=== PATIENT | male | born 1990 | race Native Hawaiian/Other Pacific Islander ===

== ENCOUNTER 2020-04-10 17:07 | Inpatient (IN) | payer OTHER ==
[~2020-04-10] VITALS: Ht 165.1 cm; Wt 69.8 kg
[2020-04-10 17:14] VITALS: BP 109/60
[2020-04-10 17:44] LABS: URINE BILIRUBIN NEGATIVE (Negative); URINE BLOOD NEGATIVE (Negative); URINE CLARITY CLEAR; URINE COLOR YELLOW; URINE GLUCOSE-RANDOM* NEGATIVE (Negative); URINE KETONES NEGATIVE (Negative); URINE LEUKOCYTES-REFLEX NEGATIVE (Negative); URINE NITRITE-REFLEX NEGATIVE (Negative); URINE PROTEIN (DIPSTICK) 1+ (Negative); URINE SPECIFIC GRAVITY 1.025 (1.005-1.035)
[2020-04-10 17:47] LABS: ABSOLUTE NEUTROPHILS 5.4 thou/uL (1.4-8.2); BASOPHILS 0.9 % (0.0-2.0); EOSINOPHILS 0.5 % (0.0-3.0); HEMATOCRIT 30.1 % (42.0-52.0); HEMOGLOBIN 10.1 gm/dL (14.0-18.0); LYMPHOCYTES 10.2 % (24.0-44.0); MCH 27.4 pg (26.0-34.0); MCHC 33.6 g/dL (28.0-37.0); MCV 81.5 fL (80.0-100.0); MONOCYTES 6.7 % (1.0-8.0); PLATELET COUNT 103 thou/uL (150-400); POLYS 81.7 % (36.0-66.0); RDW 14.8 % (10.5-14.5); WBC 6.7 thou/uL (4.0-11.0)
[2020-04-10 17:51] LABS: MUCUS >6 Heavy strn/LPF (None Seen); SQUAMOUS 0-3 Few /LPF (0-3)
[2020-04-10 17:52] LABS: BACTERIA-REFLEX None Seen /HPF (None Seen); CASTS None Seen /LPF (None Seen); CRYSTALS None Seen /LPF (None Seen); URINE RBC 0-2 Rare /HPF (0-2); URINE WBC-REFLEX 0-5 Rare /HPF (0-5)
[2020-04-10 17:56] LABS: CALCIUM 8.6 mg/dL (8.5-10.1); CREATININE 0.9 mg/dL (0.7-1.3); POTASSIUM 3.7 mmol/L (3.5-5.1)
[2020-04-10 18:02] LABS: ALBUMIN 2.9 g/dL (3.4-5.0); TOTAL BILIRUBIN 0.6 mg/dL (0.2-1.0); TOTAL PROTEIN 7.5 g/dL (6.4-8.2)
[2020-04-10 23:34] LABS: % SATURATION 6 % (20-39); IRON 16 ug/dL (65-175); TIBC 276 ug/dL (250-450)
[2020-04-11] VITALS (9 sets, daily range): BP systolic 95–105; BP diastolic 45–75
[2020-04-11 06:10] LABS: HEMATOCRIT 28.2 % (42.0-52.0); HEMOGLOBIN 9.3 gm/dL (14.0-18.0); MCH 27.3 pg (26.0-34.0); MCHC 32.9 g/dL (28.0-37.0); MCV 82.8 fL (80.0-100.0); RBC 3.4 mil/uL (4.50-6.00); RDW 14.4 % (10.5-14.5); WBC 3.8 thou/uL (4.0-11.0)
[2020-04-11 06:34] LABS: CALCIUM 8.3 mg/dL (8.5-10.1); CREATININE 0.9 mg/dL (0.7-1.3); MAGNESIUM 2.3 mg/dL (1.8-2.4); POTASSIUM 3.6 mmol/L (3.5-5.1)
--- NOTE | 2020-04-11 07:30 | NUR ---
ER REPORT RECEIVED AT 0606. PT CAME UP TO THE UNIT AT AROUND 0620. PT ORIENTED TO ROOM AND TO STAFF.PT GIVEN CALL LIGHT. HE IS NEPALESE SPEAKING. UNDERSTANDS A LITTLE BIT OF CYPRIOT. RATES PAIN AT ZERO.ADMISSION NOT DONE. REPORT GIVEN TO DAY RN.
--- NOTE | 2020-04-11 09:14 | NUR ---
ASSUMED CARE OF PATIENT HE IS ALERT X 3-4 STATES UNDERSTANDS SOME YAKUT FLUIDS STARTED ORDERED GAVE AM MED. DR COTE HERE TO SEE PATIENT. CHEST CT ORDERED WILL HOLD LUNCH.
[2020-04-11 10:15] LABS: APTT 32.1 Seconds (24.5-32.8); INR 1.2
[2020-04-11 11:11] LABS: FOLIC ACID 17.3 ng/mL (8.6-58.9)
--- NOTE | 2020-04-11 11:48 | NUR ---
Case opened to follow for dc planning. Brick Handler visited with the pt at bedside. Pt's primary language is Malay. Does understand some Spanish. His brother Jalen was here this am and left to go to work. The pt indicates that he lives with his and two children ages 4/6 in an apt. 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 He is from [place]. He notes his brother and to be his primary emergency contacts. He has met with the oncologist this am and had CT angio this morning. Bone Marrow bx anticipated today. Pt is anxious at the prospect of having cancer. He states no one in his family has cancer. Support provided. [facility] liason here to visit with the pt as well. He [place] likely [place] qualify [place]. [place] application requested. Followup care discussed and [facility] recommended. Pt provided the number for [facility] financial services to apply for their discount and to estb any f/u care needed. Cm to voucher any scripts at dc and revisit with the pt regarding f/u care needs pending the outcome of his workup. Will follow.
--- NOTE | 2020-04-11 16:09 | NUR ---
DR NUGENT PROCESS DEVELOPMENT CHEMIST HERE TO SEE PATIENT FOR GI CONSULT , DR SMITH ONCOLOGY HERE TO CONSULT WITH PATIENT,
[2020-04-11 19:06] LABS: HEMOGLOBIN 10.3 g/dL (13.0-17.7)
--- NOTE | 2020-04-11 19:31 | NUR ---
SPOKE WITH IR DR JOHNSON WILL DO BONE MARROW BIOPSY. 04/12/20 PT NPO AT MIDNIGHT WILL ALSO HAVE EGD DEVORA. SEE DR SMITH'S ORDER.
[2020-04-12 03:10] VITALS: BP 93/54
--- NOTE | 2020-04-12 03:10 | NUR ---
ASSUMED PT CARE AT AROUND 1915 HRS.PT LAYING IN BED. DOES MOT SEEM TO BE IN DISTRESS. UNDERSTANDS SOME CROATIAN AND KNOWS HE HAS SOME PROCEDURES TOMORROW. DENIES PAIN.NPO AFTER MIDNOC. UP AD QUIN IN ROOM.AFEBRILE. VOIDING OKAY. DENIES ANY NAUSEA OR VOMITING. BOWEL SOUNDS +VE X4. CALLS WITH NEEDS.
--- NOTE | 2020-04-12 07:28 | HC ---
[facility] [place] [address] [place] [address] CONSULTATION Name: EDWIGE CEEMINGOBAUTISTA Room #: 434-P ADM IN M.R.#: [id number] Admission: 04/10/20 Attend Phys: Rei Burns MD Discharge: Date of : 89 Report #: [id number] THIS REPORT FOR: cc: FAM - No family physician/PCP FAM - No family physician/PCP Derek Radford MD ~ PHYSICIAN REQUESTING CONSULT: Dr. Rei Burns. REASON FOR CONSULTATION: Splenomegaly at 20 cm with anemia and thrombocytopenia and osteoblastic changes on CAT scan. HISTORY OF PRESENT ILLNESS: The patient is a very pleasant 29-year-old male originally from [place] who is interviewed in the presence of his brother. He came to the hospital yesterday for evaluation of his anemia was thought to be epistaxis. Also, the patient denies any fevers, chills, swallowing difficulties, vision troubles, mouth sores, bony pain, lymphadenopathy, skin rash, blood in his urine or stool, diarrhea, constipation, dysuria, may have had a little bit of weight change. Unfortunately here, his CAT scan of the abdomen and pelvis found the spleen of 20 x 15 x 11 cm and also concern about osteoblastic changes throughout all the visualized osseous structures were both seen in the ileum bilaterally. 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 The patient also denotes no history of fungal or tuberculosis type infections. SOCIAL HISTORY: The patient works in construction. He is . He has children, age 4 and 6 [address] drugs. Not a smoker, if I understand right. There may be he is a 6 pack per day up until maybe about 2 weeks ago. FAMILY HISTORY: No blood disorders that they are aware of. PHYSICAL EXAMINATION: GENERAL: The patient appears his stated age. He is a very healthy appearing young man. VITAL SIGNS: Height is 5 feet 5 inches, 165 cm, weight 160 pounds or 72.58 kilograms, blood pressure is 95/45, respirations 20, pulse 71, afebrile at 98. NEUROLOGIC: Face is symmetric. HEENT: Oropharynx, patient reports no issues. LYMPHATICS: No enlarged lymph nodes palpable in the supraclavicular, cervical, axillary or inguinal region. ABDOMEN: Without hepatomegaly. Spleen may be palpable with deep inspiration about 2-3 cm below the costal margin. EXTREMITIES: Without clubbing, cyanosis or edema. LABORATORY DATA: Notable for normal electrolytes, total bilirubin normal. AST is only mildly elevated at 48, alkaline phosphatase normal at 107, [place] [address] CONSULTATION Name: EDWIGE CASTROBAUTISTA Room #: 434-P [facility] IN .R.#: [id number] Admission: 04/10/20 Attend Phys: Rei Burns MD Discharge: Date of : 89 Report #: [id number] 47. Albumin low at 2.9. Iron low at 16, percent iron saturation 6%. Coags pending. White count on admission 6.7, today 3.8, hemoglobin on admit 10.1, today 9.3, MCV 81.5, RDW 14.4, platelets yesterday 103, today 84. Differential mostly normal with slight increase in neutrophils. Path review pending. UA mostly unremarkable. MEDICATIONS: At this time currently include famotidine 20 b.i.d., oral Tylenol, and p.r.n. Zofran. ASSESSMENT AND PLAN: 1. Osteoblastic CT changes with [address] scan with mild thrombocytopenia and also mild anemia, worrisome for bone marrow process, though this could be related to iron deficiency, have suggested a bone marrow biopsy with conscious sedation to the patient and his brother. They are willing to proceed. They understand that we will look both for malignancy as well as infection, bacterial, fungal and AFB type etiologies. Therapy would be dependent on what is found. We will also check alpha fetoprotein and beta hCG and coags. 2. Epistaxis, sounds like it has been persistent for 2 years. We will check coags. Could consult ENT if it persists. Also, wonder if this could be related to some type of granulomatous or inflammatory disorder. 3. Iron deficiency and thrombocytopenia. Consider replacing iron. We will also check B12 and folate, peripheral smear is pending. 4. Alcohol misuse and abuse. If patient has not drunk for 2 weeks and I would hope that antiplatelet effect would have resolved. We will await GI's input. At this time, no stigmata of liver disease, could consider abdominal ultrasound or EGD to look for varices. 5. Social issues. The patient originally from [place] is a non [place] citizen, does not have insurance. We will ask case management to visit with the patient and family regarding help and assistance with some of these issues. We will follow with you. <ELECTRONICALLY SIGNED> By: Derek Radford MD 04/12/20 0728 [id number] Derek Radford MD /nt
[2020-04-12 08:52] VITALS: BP 112/66
[2020-04-12 09:43] LABS: HEMATOCRIT 28.1 % (42.0-52.0); HEMOGLOBIN 9.4 gm/dL (14.0-18.0); MCH 27.7 pg (26.0-34.0); MCHC 33.5 g/dL (28.0-37.0); MCV 82.7 fL (80.0-100.0); RBC 3.39 mil/uL (4.50-6.00); RDW 14.6 % (10.5-14.5); WBC 5.3 thou/uL (4.0-11.0)
[2020-04-12 10:31] LABS: CALCIUM 8.7 mg/dL (8.5-10.1); CREATININE 0.9 mg/dL (0.7-1.3); POTASSIUM 3.7 mmol/L (3.5-5.1)
--- NOTE | 2020-04-12 11:29 | NUR ---
Assumed care of pt at 0700. Pt a&ox4. Denies pain. MRI of head completed. Scheduled from bone marroaw biopsy and EGD. Pt running a fever this am. Provider notified. Fever resolved at this moment. Call light within reach. Erlin continue to monitor.
--- NOTE | 2020-04-12 11:37 | NUR ---
Nutrition: RD noted pt reported wt loss and loss of appetite on admission screening. RD visited with pt after MRI this am. Pt reports he has been eating well. Noted large containers of fruit in room, chips on bedside table. Pt denies any recent wt loss, noting his clothes are all fitting the same. No pressure ulcers noted. Pt with no c/o GI distress at present. Pt remains low nutritional risk at this time.
--- NOTE | 2020-04-12 12:46 | NUR ---
on-going assessment: CM REVIEWED CHART AND SPOKE WITH ATTENDING. PT STILL FEBRILE. PT HAVING BONE MARROW BIOPSY ASPIRATE TODAY WELL EGD. CM WILL CONTINUE TO FOLLOW.
[2020-04-12 14:50] LABS: BASOPHILS 0.2 % (0.0-2.0); EOSINOPHILS 0.6 % (0.0-3.0); HEMATOCRIT 28.3 % (42.0-52.0); HEMOGLOBIN 9.3 gm/dL (14.0-18.0); LYMPHOCYTES 10.2 % (24.0-44.0); MCH 27.1 pg (26.0-34.0); MCHC 32.9 g/dL (28.0-37.0); MCV 82.3 fL (80.0-100.0); MONOCYTES 5.8 % (1.0-8.0); PLATELET COUNT 85 thou/uL (150-400); POLYS 83.2 % (36.0-66.0); RBC 3.44 mil/uL (4.50-6.00); RDW 14.6 % (10.5-14.5)
[2020-04-12 15:37] VITALS: BP 97/56
[2020-04-12 18:59] VITALS: BP 103/61
--- NOTE | 2020-04-13 01:44 | NUR ---
ASSESSED AT START OF SHIFT. PT RESTING IN BED. TYELNOL GIVEN FOR TEMP 99.4. IV INTACT AND SL. PT UP AD QUIN. CLEAR LUNG SOUNDS. NO FURTHER SIGNS OF DISCOMFORT WILL CONT TO MONITOR TILL EOS.
[2020-04-13 04:46] VITALS: BP 90/56
[2020-04-13 06:09] LABS: HEMATOCRIT 28.6 % (42.0-52.0); HEMOGLOBIN 9.4 gm/dL (14.0-18.0); MCH 27.2 pg (26.0-34.0); MCHC 32.9 g/dL (28.0-37.0); MCV 82.8 fL (80.0-100.0); RBC 3.46 mil/uL (4.50-6.00); RDW 14.7 % (10.5-14.5); WBC 5.4 thou/uL (4.0-11.0)
[2020-04-13 06:28] LABS: CALCIUM 8.5 mg/dL (8.5-10.1); CREATININE 0.9 mg/dL (0.7-1.3); MAGNESIUM 2.1 mg/dL (1.8-2.4); POTASSIUM 3.8 mmol/L (3.5-5.1)
[2020-04-13 07:45] VITALS: BP 102/54
--- NOTE | 2020-04-13 10:23 | NUR ---
Assumed care of pt at 0700. Pt a&ox4. Mongolian speaking but able to understand some uzbek. Denies pain. Low grade fever in the am. Awaiting bone marrow biopsy. Call light within reach. Will continue to monitor.
--- NOTE | 2020-04-13 11:42 | NUR ---
on-going assessment: CM REVIEWED CHART AND SPOKE WITH ATTENDING. PT IS STILL FEBRILE AND REMAINS ON IV ANBX. PT HAD EGD YESTERDAY AND BIOPSIES ARE PENDING. PT IS A POSSIBLE DISCHARGE FOR OVER THE WEEKEND. CM PLACED CONTACT INFORMATION FOR [facility] FOR PATIENT TO CALL AND GET CONNECTED WITH THEIR SERVICES/FINANCIAL DEPARTMENT. CONTACT NUMBERS WERE ALSO LEFT FOR [facility].
[2020-04-13 12:07] LABS: HEMATOLOGY COMMENTS Note: (()); HEMOGLOBIN 9.2 g/dL (13.0-17.7)
--- NOTE | 2020-04-13 15:15 | HC ---
[facility] [place] [address] CONSULTATION Name: EDWIGE CEEMINGOBAUTISTA Room #: 434-P ADM IN M.R.#: [id number] Admission: 04/10/20 Attend Phys: Rei Burns MD Discharge: Date of : 89 Report #: [id number] THIS REPORT FOR: cc: FAM - No family physician/PCP FAM - No family physician/PCP Gurpreet De Santiago MD ~ DATE OF SERVICE: 04/12/2020 INFECTIOUS DISEASE CONSULTATION REASON FOR CONSULTATION: I was asked to evaluate concerning fever. HISTORY OF PRESENT ILLNESS: The patient is a 29-year-old [place] immigrant who works as a construction director, presents with anemia and epistaxis. Prior to his admission, he denied any fever, chills or night sweats. Subsequently, he has showed us that he does have such with temperature up to 102.8 degrees. He has evidence of adenopathy. His epistaxis has resolved. He is noted to have thrombocytopenia of 85,000. He had further imaging studies, which showed mediastinal and neck adenopathy. He had splenomegaly. He has osteoblastic bony lesions throughout. He underwent a bone marrow biopsy today. Overall, the patient states he feels reasonably well. He drinks about a 6-pack a day of beer. Denies any known history of fungal or tuberculosis infection. No HIV risk factors reported. REVIEW OF SYSTEMS: A 14-point review of system was negative other than what has been described above. He did undergo an EGD, which showed evidence of gastritis. Biopsies pending. ALLERGIES: None known. MEDICATIONS: As noted on his MAR, which were reviewed. He has been on no recent antibiotics. FAMILY HISTORY: No reported tuberculosis. SOCIAL HISTORY: Works in construction. He is . He has 2 young children. Nonsmoker. PHYSICAL EXAMINATION: VITAL SIGNS: Afebrile and hemodynamically stable. GENERAL: He is alert and cooperative and pleasant, in no acute distress. SKIN: Without rash or decubitus. Few palpable nodes in the right neck, supraclavicular region. EYES: Without scleral icterus. MOUTH: Without mucositis. [facility] [address] [place] [address] CONSULTATION Name: BAUTISTA JAEGER Room #: 434-P [facility] IN M.R.#: [id number] Admission: 04/10/20 Attend Phys: Rei Burns MD Discharge: Date of : 89 Report #: [id number] NECK: Supple. LUNGS: Clear. HEART: Regular, without murmur. ABDOMEN: Soft with spleen tip palpable on deep inspiration. No other masses. GENITAL AND RECTAL: Not performed. EXTREMITIES: Without clubbing, cyanosis or edema. NEUROLOGIC: Cranial nerves intact. Strength in the upper and lower extremities was normal. PSYCHIATRIC: Mood was normal. LABORATORY STUDIES: Reviewed. MICROBIOLOGY: Reviewed. IMAGING: CT scan of the chest, abdomen and pelvis reviewed. MRI scan of the head reviewed. EGD reviewed. IMPRESSION: A 29-year-old with anemia, thrombocytopenia, fever and B symptoms suggestive of Hodgkin's lymphoma. In addition, he has adenopathy, splenomegaly and osteoblastic bone lesions. So far, no evidence of end-organ infection such as pneumonia, urinary tract or biliary tract. The patient states that he overall feels well, except for his fatigue. He stated that he is very strong when he works in construction. His main presenting issue with his anemia was fatigue and associated epistaxis related to his thrombocytopenia. Other issues include alcohol overuse. RECOMMENDATIONS: We will obtain serologic studies as the patient is an immigrant from [place]. This will include tuberculosis, histoplasma, HIV. LDH, ESR and CRP checked. We will await bone marrow biopsy to confirm the diagnosis. We will monitor his temperature for any other evidence of deterioration. Otherwise, we will watch off antibiotics at this point. <ELECTRONICALLY SIGNED> By: Gurpreet De Santiago MD 04/13/20 1515 0108 [id number] Gurpreet De Santiago MD /nt
[2020-04-13 16:08] VITALS: BP 101/63
[2020-04-13 19:00] VITALS: BP 109/67
[2020-04-13 20:40] VITALS: BP 109/67
[2020-04-14 03:06] LABS: HIV ANTIBODY Non Reactive (Non Reactive)
--- NOTE | 2020-04-14 04:08 | NUR ---
PT AOX4. PT PRIMARY LANGUAGE LAO, CAN UNDERSTAND AND SPEAK SOME LAO. PT REPORTS 3/10 LEFT LOWER BACK PAIN NEAR BONE MARROW BIOPSY SITE. PT RECEIVING PRN PO APAP Q6HR WITH PRN NV APAP Q4HR AVAILABLE. PT DENIES SOB WHILE ON ROOM AIR. PT AMBULATING INDEPENDENTLY IN ROOM AND TO BATHROOM. FREQUENT REPOSITIONING ENCOURAGED WHILE IN BED, PT NOTED TO SHIFT INDEPENDENTLY WHILE IN BED. PT TOLERATING PO INTAKE OF FLUIDS AND REGULAR DIET WITHOUT ISSUE. PT ENCOURAGED TO NOTIFY STAFF FOR ALL NEEDS, CALL LIGHT WITHIN REACH, BED LOCKED IN LOWEST POSITION, FREQUENT MONITORING WILL CONTINUE.
[2020-04-14 05:38] LABS: HEMATOCRIT 30.7 % (42.0-52.0); MCH 27.1 pg (26.0-34.0); MCHC 32.7 g/dL (28.0-37.0); MCV 82.9 fL (80.0-100.0); RBC 3.7 mil/uL (4.50-6.00); RDW 14.6 % (10.5-14.5); WBC 5.2 thou/uL (4.0-11.0)
[2020-04-14 06:00] LABS: CALCIUM 8.8 mg/dL (8.5-10.1); CREATININE 0.8 mg/dL (0.7-1.3); MAGNESIUM 2.1 mg/dL (1.8-2.4); POTASSIUM 3.9 mmol/L (3.5-5.1)
[2020-04-14 07:30] VITALS: BP 104/59; BP 159/62
--- NOTE | 2020-04-14 10:35 | NUR ---
ASSUMED CARE OF PATIENT HE IS ALERT TOOK AM MEDS AND ATE BREAKFAST. PATIENT HAD T = 100.6 GAVE MED WILL RECHECK. PT WANTS TO DISCHARGE WILL CHECK ON THIS ALSO. PT SPEAKS LUXEMBOURGER BUT CAN SPEAK AND UNDERSTAND SOME PORTUGUESE. PLEASANT AND COOPERATIVE WITH CARE.
[2020-04-14 13:01] VITALS: BP 95/45
[2020-04-14 13:44] VITALS: BP 95/45
== END 2020-04-14 13:47 | disposition home or self-care (01) | DRG 477 ==
LOC: ER 17:07 → EDBD 21:01 → EROBS 21:01 → 4S 21:01
PROVIDERS: Internal Medicine Hematology & Oncology; Nurse Practitioner Family; Physician Assistant; Radiology Diagnostic Radiology; Specialist; ADMIT Internal Medicine; ATTEND Internal Medicine
PROC: 0DB68ZX Excision of Stomach, Via Natural or Artificial Opening Endoscopic, Diagnostic (ICD-10-PCS; principal; 2020-04-12)
PROC: 0Q933ZX Drainage of Left Pelvic Bone, Percutaneous Approach, Diagnostic (ICD-10-PCS; principal; 2020-04-12)
DX: D16.9 Benign neoplasm of bone and articular cartilage, unspecified (principal); K29.71 Gastritis, unspecified, with bleeding; D61.818 Other pancytopenia; C81.90 Hodgkin lymphoma, unspecified, unspecified site; R16.1 Splenomegaly, not elsewhere classified; D69.6 Thrombocytopenia, unspecified; R04.0 Epistaxis; F10.10 Alcohol abuse, uncomplicated; D50.9 Iron deficiency anemia, unspecified; Y90.9 Presence of alcohol in blood, level not specified; Z20.822 Contact with and (suspected) exposure to COVID-19
CPT/HCPCS: 10102; 62110; 62900; 70005